=== PATIENT | male | born 1975 ===

== ENCOUNTER 2019-05-18 01:24 | Emergency (ER) | payer OTHER ==
[~2019-05-18] VITALS: Ht 175.3 cm; Wt 156.5 kg
[~2019-05-18 01:24] MED LIST: CEFADROXIL500 MG PO; ELIQUIS2.5 MG PO; PERCOCET 5-3251 EACH PO; TENORMIN50 M1 PO
[2019-05-18] MEDS ORDERED: FEROCON CAPSUL1 EACH (01:31)
[2019-05-18] MEDS ORDERED: TRAZODONE HCL150 MG (01:31)
[2019-05-18] MEDS ORDERED: SINGULAIR10 MG (01:31)
[2019-05-18] MEDS ORDERED: LODINE300 MG (01:31)
[2019-05-18] MEDS ORDERED: INTEGRA PLUS C1 EACH (01:31)
[2019-05-18] MEDS ORDERED: VOLTAREN100 GM (01:32)
[2019-05-18] MEDS ORDERED: PEPCID40 MG PO (05:42)
[2019-05-18] MEDS ORDERED: LEVSIN/SL0.125 MG SL (05:42)
[2019-05-18] MEDS ORDERED: ZOFRAN8 MG PO (05:42)
== END 2019-05-18 06:07 | disposition home or self-care (01) ==
LOC: ER 01:24
DX: K29.70 Gastritis, unspecified, without bleeding (principal)

== ENCOUNTER 2019-06-25 07:42 | Outpatient (CLI) | payer OTHER ==
[~2019-06-25 07:42] MED LIST changes: +FEROCON CAPSUL1 EACH; +INTEGRA PLUS C1 EACH; +LEVSIN/SL0.125 MG SL; +LODINE300 MG; +PEPCID40 MG PO; +SINGULAIR10 MG; +TRAZODONE HCL150 MG; +VOLTAREN100 GM; +ZOFRAN8 MG PO
== END 2019-06-25 08:10 | disposition home or self-care (01) ==
LOC: SONOGRAMA 07:42
DX: E04.2 Nontoxic multinodular goiter (principal)

== ENCOUNTER → 2019-06-29 | Outpatient (CLI) | payer OTHER | END | disposition home or self-care (01) | LOC: LAB 06:39 | DX: D72.828 Other elevated white blood cell count (principal); D50.8 Other iron deficiency anemias; E03.8 Other specified hypothyroidism; D51.8 Other vitamin B12 deficiency anemias; J32.4 Chronic pansinusitis; E04.2 Nontoxic multinodular goiter; I10 Essential (primary) hypertension ==

== ENCOUNTER 2019-08-28 07:01 | Outpatient (CLI) | payer OTHER | END 2019-08-28 07:10 | disposition home or self-care (01) | LOC: LAB 07:01 | PROVIDERS: ATTEND Internal Medicine Hematology & Oncology | DX: D50.8 Other iron deficiency anemias (principal); I10 Essential (primary) hypertension; D51.8 Other vitamin B12 deficiency anemias; E03.8 Other specified hypothyroidism; C73 Malignant neoplasm of thyroid gland; D72.828 Other elevated white blood cell count; G47.33 Obstructive sleep apnea (adult) (pediatric); J32.4 Chronic pansinusitis; E04.2 Nontoxic multinodular goiter ==

== ENCOUNTER 2019-10-05 12:52 | Outpatient (CLI) | payer OTHER | END 2019-10-05 13:14 | disposition home or self-care (01) | LOC: NUCLEAR 12:52 | PROVIDERS: ATTEND Internal Medicine Sports Medicine | DX: C73 Malignant neoplasm of thyroid gland (principal); E89.0 Postprocedural hypothyroidism | CPT/HCPCS: 79005; A9517 ==

== ENCOUNTER 2019-10-08 11:20 | Outpatient (CLI) | payer OTHER | END 2019-10-08 11:22 | disposition home or self-care (01) | LOC: NUCLEAR 11:20 | PROVIDERS: ATTEND Internal Medicine Sports Medicine | DX: C73 Malignant neoplasm of thyroid gland (principal); E89.0 Postprocedural hypothyroidism ==

== ENCOUNTER → 2020-11-07 12:52 | Outpatient (CLI) | payer OTHER | END | disposition home or self-care (01) | LOC: NUCLEAR 12:52 | PROVIDERS: ATTEND Internal Medicine Sports Medicine | DX: C73 Malignant neoplasm of thyroid gland (principal) | CPT/HCPCS: 78018; 78020; A9528 ==